=== PATIENT | male | born 1965 | race Caucasian/White ===

== ENCOUNTER 2016-09-16 12:34 | Emergency (ER) | payer OTHER ==
[~2016-09-16] VITALS: Ht 170.2 cm; Wt 105.0 kg
[2016-09-16] MEDS ORDERED: MIDO2.5 PO (13:37)
[2016-09-16] MEDS ORDERED: INSU100C14 SQ (13:37)
[2016-09-16] MEDS ORDERED: EPOE10I SQ (13:37)
[2016-09-16] MEDS ORDERED: VITAD1000 PO (13:37)
[2016-09-16] MEDS ORDERED: METO5TAB95 PO (13:37)
[2016-09-16] MEDS ORDERED: FOLI1CAP2 PO (13:37)
[2016-09-16] MEDS ORDERED: THIA100 PO (13:37)
[2016-09-16] MEDS ORDERED: LACT10SO32 PO (13:37)
[2016-09-16] MEDS ORDERED: MELA3 PO (13:37)
[2016-09-16] MEDS ORDERED: FOLI1 PO (13:37)
[2016-09-16] MEDS ORDERED: BISA10S PR (13:37)
[2016-09-16] MEDS ORDERED: HYDR-309 PO (13:37)
[2016-09-16] MEDS ORDERED: DSS100 PO (13:37)
[2016-09-16] MEDS ORDERED: SEVEC800 PO (13:37)
[2016-09-16] MEDS ORDERED: COLL30OI TP (13:37)
[2016-09-16] MEDS ORDERED: LEVO100 PO (13:37)
[2016-09-16 13:51] LABS: GLUCOSE,POINT OF CARE 148 MG/DL (70-110)
[2016-09-16] MEDS ORDERED: LIDOCAINE HCL BUFFERED 1% W/EPI 1:100,000 20 ML VIAL ONE (16:13)
[2016-09-16] MEDS ORDERED: SODIUM CHLORIDE 0.9% 250 ML IRRIG SOLUTION BOTTLE IRRIG ONE (16:30)
[2016-09-16] MEDS ORDERED: LIDOCAINE HCL BUFFERED 1% W/EPI 1:100,000 20 ML VIAL INJ ONE (16:30)
[2016-09-16 18:27] VITALS: BP 133/80
== END 2016-09-16 18:46 | disposition home or self-care (01) ==
LOC: EMS 12:36
DX: Z45.2 Encounter for adjustment and management of vascular access device (principal); I10 Essential (primary) hypertension; F17.210 Nicotine dependence, cigarettes, uncomplicated
CPT/HCPCS: 71010; 82962; 99284; J3490